=== PATIENT | male | born 2000 | race Two or more races ===

== ENCOUNTER 2019-07-05 22:04 | Emergency (ER) | payer MEDICAID, OTHER ==
[~2019-07-05] VITALS: Ht 182.9 cm; Wt 111.1 kg
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
--- NOTE | 2019-07-05 23:23 | NUR ---
Patient discharged to home in stable condition. RX and Written and verbal after care instructions given. Patient verbalizes understanding of instruction.
[2019-07-05 23:29] VITALS: BP 135/76
== END 2019-07-05 23:29 | disposition home or self-care (01) ==
LOC: EDBD 22:05 → ER 22:05
DX: R10.9 Unspecified abdominal pain (principal); V49.49XA Driver injured in collision with other motor vehicles in traffic accident, initial encounter; Y93.89 Activity, other specified; Y92.413 State road as the place of occurrence of the external cause; Y99.8 Other external cause status